=== PATIENT | female | born 1990 | race Hispanic/Latino ===

== ENCOUNTER 2019-11-08 17:08 | Inpatient (IN) | payer OTHER ==
[~2019-11-08] VITALS: Ht 157.5 cm; Wt 70.3 kg
[2019-11-08] MEDS ORDERED: LACTATED RINGERS 1000ML 1,000 ML IV PRN (17:21)
[2019-11-08] MEDS ORDERED: NALOXONE HCL 0.4 MG/1 ML ML IV PRN (17:30)
[2019-11-08] MEDS ORDERED: ROPIVACAINE 0.2% 100ML VIAL 100 ML EP SCH (17:30)
[2019-11-08] MEDS ORDERED: BUTORPHANOL TARTRATE 2 MG/ML IVP PRN (17:30)
[2019-11-08] MEDS ORDERED: LACTATED RINGERS 500 ML 500 ML IV PRN (17:30)
[2019-11-08] MEDS ORDERED: EPHEDRINE SULFATE 50 MG/ML AMPULE IVP PRN (17:30)
[2019-11-08] MEDS ORDERED: OXYTOCIN-LR 20 UNITS/1000 ML 1,000 ML IV SCH (17:30)
[2019-11-08 18:09] LABS: HEMATOCRIT 36.7 % (36-48); MEAN CORPUSCULAR HEMOGLOBIN 26.7 pg (27.0-33.0); MEAN CORPUSCULAR HGB CONC 32.4 g/dL (32.0-36.0); MEAN CORPUSCULAR VOLUME 82.3 fL (79-99); PLATELET COUNT (AUTO) 202 K/uL (130-400); RED BLOOD CELL COUNT(AUTO) 4.46 MIL/uL (4.00-5.50); RED CELL DISTRIBUTION WIDTH 12.9 % (11.0-15.5); WHITE BLOOD COUNT (AUTO) 7.5 K/uL (4.8-10.8)
[2019-11-08 18:10] LABS: APPEARANCE,URINE Clear (CLEAR); BILIRUBIN,URINE Negative (NEGATIVE); COLOR,URINE Yellow (YELLOW); GLUCOSE, URINE (UA) Negative (NEGATIVE); KETONES,URINE Negative (NEGATIVE); LEUKOCYTE ESTERASE ,URINE Negative (NEGATIVE); NITRATE,URINE Negative (NEGATIVE); OCCULT BLOOD,URINE Trace (NEGATIVE); PH,URINE 6.5 (5.0-8.0); PROTEIN,URINE Negative (NEGATIVE); UROBILINOGEN,URINE 0.2 mg/dL (0.2-1.0)
[2019-11-08] MEDS: MISOPROSTOL 25 MCG TABLET VG SCH (18:20)
[2019-11-08 18:28] LABS: BACTERIA,URINE Rare /HPF (None Seen); SQUAMOUS EPITHELIAL CELL,UR Few /HPF (0-2); WBC,URINE 0-1 /HPF (0-1)
[2019-11-09] MEDS ORDERED: ROPIVACAINE 0.2% 100ML VIAL 100 ML EP SCH
[2019-11-09] MEDS ORDERED: LACTATED RINGERS 1000ML 1,000 ML IV PRN (01:45)
[2019-11-09] MEDS ORDERED: OXYTOCIN-LR 20 UNITS/1000 ML 1,000 ML IV SCH ×2 (01:45→09:00)
[2019-11-09] MEDS ORDERED: LIDOCAINE HCL 1% 20 ML VIAL ONE (01:51)
[2019-11-09] MEDS ORDERED: OXYTOCIN 10 USP UNITS/ML 20 UNIT in LACTATED RINGERS 1000ML 1,000 ML IV SCH (06:00)
[2019-11-09] MEDS ORDERED: ACETAMINOPHEN 325 MG TAB PO PRN (09:00)
[2019-11-09] MEDS ORDERED: WITCH HAZEL 1 PAD TP PRN (09:00)
[2019-11-09] MEDS ORDERED: LANOLIN 30GM OINTMENT TP PRN (09:00)
[2019-11-09] MEDS ORDERED: ACETAMINOPHEN-CODEINE 300/30MG TAB PO PRN (09:00)
[2019-11-09] MEDS ORDERED: MEASLES/MUMPS/RUBELLA VACCINE, LIVE 0.5 ML/VIAL SQ PRN (09:00)
[2019-11-09] MEDS ORDERED: DIPH,PERTUSS(ACELL),TET VAC/PF 0.5 ML VIAL IM PRN (09:00)
[2019-11-09] MEDS ORDERED: BENZOCAINE/LANOLIN/ALOE VERA 60 ML AEROSOL TP PRN (09:00)
[2019-11-09 09:03] VITALS: BP 126/60
[2019-11-09] MEDS: DOCUSATE SODIUM 100 MG CAP PO SCH ×2 (09:52→21:06)
[2019-11-09] MEDS: IBUPROFEN 600 MG TABLET PO PRN ×2 (09:53→16:14)
[2019-11-09] MEDS ORDERED: PREN-196 PO (09:59)
[2019-11-09 11:26] VITALS: BP 111/63
[2019-11-09 16:20] VITALS: BP 111/68
[2019-11-09 20:00] VITALS: BP 109/65
[2019-11-10] VITALS: BP 126/81
[2019-11-10] MEDS: IBUPROFEN 600 MG TABLET PO PRN ×2 (00:07→08:49)
[2019-11-10 04:00] VITALS: BP 112/74
[2019-11-10 05:35] LABS: HEMATOCRIT 32.5 % (36-48); MEAN CORPUSCULAR HEMOGLOBIN 26.9 pg (27.0-33.0); MEAN CORPUSCULAR HGB CONC 32.3 g/dL (32.0-36.0); MEAN CORPUSCULAR VOLUME 83.3 fL (79-99); PLATELET COUNT (AUTO) 176 K/uL (130-400); RED CELL DISTRIBUTION WIDTH 13.2 % (11.0-15.5); WHITE BLOOD COUNT (AUTO) 8.9 K/uL (4.8-10.8)
[2019-11-10] MEDS: MISOPROSTOL 25 MCG TABLET VG SCH ×2 (06:00)
[2019-11-10 07:11] LABS: HEPATITIS Bs ANTIGEN SCREEN P Negative (Negative)
[2019-11-10 07:40] VITALS: BP 110/73
[2019-11-10] MEDS: DOCUSATE SODIUM 100 MG CAP PO SCH (08:49)
--- NOTE | 2019-11-10 11:10 | NUR ---
DISCHARGE PT LEFT UNIT VIA WHEELCHAIR, WITH BABY IN ARMS, ACCOMPANIED BY SIGNIFICANT OTHER. DENIED PAIN AND HAD NO COMPLAINTS. BABY STRAPPED IN CAR SEAT. PT AND BABY TRANSPORTED BY PERSONAL VEHICLE.
== END 2019-11-10 11:10 | disposition home or self-care (01) | DRG 807 ==
LOC: LDH 17:08 → WSH 11-09 08:58
PROVIDERS: ADMIT Obstetrics & Gynecology; ATTEND Obstetrics & Gynecology
PROC: 3E0234Z Introduction of Serum, Toxoid and Vaccine into Muscle, Percutaneous Approach (ICD-10-PCS; principal; 2019-11-09)
PROC: 10E0XZZ Delivery of Products of Conception, External Approach (ICD-10-PCS; 2019-11-09)
PROC: 0UQMXZZ Repair Vulva, External Approach (ICD-10-PCS; 2019-11-09)
PROC: 3E0R3BZ Introduction of Anesthetic Agent into Spinal Canal, Percutaneous Approach (ICD-10-PCS; 2019-11-09)
PROC: 00HU33Z Insertion of Infusion Device into Spinal Canal, Percutaneous Approach (ICD-10-PCS; 2019-11-09)
DX: O70.0 First degree perineal laceration during delivery (principal); Z37.0 Single live birth; Z23 Encounter for immunization; Z3A.39 39 weeks gestation of pregnancy
CPT/HCPCS: 36415; 81001; 85027; 86592; 86850; 86900; 86901; 87340; 90715; A4314; G0378; J0595; J2590; J2795; J7120